=== PATIENT | male | born 1960 | race Caucasian/White ===

== ENCOUNTER 2019-12-31 05:48 | Inpatient (IN) | payer OTHER ==
[~2019-12-31] VITALS: Ht 180.3 cm; Wt 80.0 kg
[2019-12-31] MEDS ORDERED: LACTATED RINGERS 1,000 ML IV SCH (06:49)
[2019-12-31] MEDS ORDERED: CHLORHEXIDINE 15 ML UDC MM STA (06:49)
[2019-12-31] MEDS ORDERED: BENA20TA54 PO (06:51)
[2019-12-31] MEDS ORDERED: LOVA20TA2 PO (06:51)
[2019-12-31] MEDS ORDERED: MIDAZOLAM 1 MG/ML, 2ML ONE (07:03)
[2019-12-31] MEDS ORDERED: FENTANYL PF 100 MCG/2ML ONE ×3 (07:03→09:40)
[2019-12-31] MEDS ORDERED: HYDROmorphone 1 MG/ML, 1ML INJ IVPush PRN (07:30)
[2019-12-31] MEDS ORDERED: MEPERIDINE/PF 25MG/0.5ML IVPush PRN (07:30)
[2019-12-31] MEDS ORDERED: OXYcodone 5 MG/5 ML ORAL.SOL UDC PO PRN (07:30)
[2019-12-31] MEDS ORDERED: PROMETHAZINE 25 MG/ML, 1ML IVPush PRN (07:30)
[2019-12-31] MEDS ORDERED: HYDROcodone/APAP 7.5-325MG/15ML UDC PO PRN (07:30)
[2019-12-31] MEDS ORDERED: EPINEPHRINE 1 MG/ML, 1ML ONE (07:31)
[2019-12-31] MEDS ORDERED: LIDOCAINE/PF 1%, 30ML ONE (07:31)
[2019-12-31] MEDS ORDERED: GLYCOPYRROLATE 0.2MG/1ML, 5ML ONE (07:57)
[2019-12-31] MEDS ORDERED: ONDANSETRON 2MG/ML, 2ML ONE (07:57)
[2019-12-31] MEDS ORDERED: DEXAMETHASONE 4 MG/ML, 1ML ONE (07:57)
[2019-12-31] MEDS ORDERED: NEOSTIGMINE 1 MG/ML, 10ML ONE (07:57)
[2019-12-31] MEDS ORDERED: CEFAZOLIN 1,000 MG ONE (07:57)
[2019-12-31] MEDS ORDERED: SUCCINYLCHOLINE 20 MG/ML, 10ML ONE (07:57)
[2019-12-31] MEDS ORDERED: ROCURONIUM 10MG/ML,5ML ONE (07:57)
[2019-12-31] MEDS ORDERED: PROPOFOL 10 MG/ML, 20ML ONE (07:57)
[2019-12-31] MEDS ORDERED: ACETAMINOPHEN 650 MG/20.3 ML UDC ONE (09:13)
[2019-12-31] MEDS ORDERED: ACETAMINOPHEN 500 MG TABLET PO STA (09:14)
[2019-12-31] MEDS ORDERED: OXYcodone 5 MG/5 ML ORAL.SOL UDC ONE (09:17)
[2019-12-31] MEDS: FENTANYL PF 100 MCG/2ML IV PRN ×3 (09:43→10:04)
[2019-12-31 10:44] LABS: CHLORIDE 106 mmol/L (98-107)
[2019-12-31 10:45] LABS: ALANINE AMINOTRANSFERASE 42 U/L (12-78); ALBUMIN 4.2 g/dL (3.4-5.0); ALKALINE PHOSPHATASE 50 U/L (45-117); ANION GAP 4 mmol/L (5-15); BILIRUBIN,TOTAL 0.6 mg/dL (0.2-1.0); CALCIUM 9.2 mg/dL (8.5-10.1); CREATININE 1.11 mg/dL (0.7-1.3); TOTAL PROTEIN 7.8 g/dL (6.4-8.2)
[2019-12-31] MEDS ORDERED: morphine SULFATE 10 MG/ML, 1ML ONE (11:36)
[2019-12-31] MEDS: morphine SULFATE 10 MG/ML, 1ML IVPush PRN ×3 (11:40→19:37)
[2019-12-31] MEDS ORDERED: ONDANSETRON 2MG/ML, 2ML IVPush PRN (12:00)
[2019-12-31] MEDS ORDERED: PROMETHAZINE 25 MG/ML, 1ML IM PRN (12:00)
[2019-12-31] MEDS ORDERED: ONDANSETRON ODT 4 MG PO PRN (12:00)
[2019-12-31] MEDS: IBUPROFEN 600 MG TABLET PO SCH ×2 (12:00→17:20)
[2019-12-31] MEDS ORDERED: IBUPROFEN 600 MG TABLET ONE (12:08)
[2019-12-31 13:14] VITALS: BP 145/88
[2019-12-31] MEDS: OXYcodone IR 5MG TABLET PO PRN ×3 (13:28→21:09)
[2019-12-31] MEDS: LACTATED RINGERS 1,000 ML IV SCH (13:42)
[2019-12-31] MEDS: ACETAMINOPHEN 325 MG TABLET PO SCH ×2 (15:38→20:47)
[2019-12-31 20:22] VITALS: BP 115/69
[2019-12-31] MEDS: SODIUM CHLORIDE FLUSH 10ML SYR IVF SCH (20:47)
[2020-01-01] MEDS: IBUPROFEN 600 MG TABLET PO SCH ×2 (00:12→05:34)
[2020-01-01] MEDS: OXYcodone IR 5MG TABLET PO PRN ×3 (01:21→09:38)
[2020-01-01 01:25] VITALS: BP 123/79
[2020-01-01] MEDS: morphine SULFATE 10 MG/ML, 1ML IVPush PRN ×2 (01:41→05:26)
[2020-01-01] MEDS: ACETAMINOPHEN 325 MG TABLET PO SCH ×2 (02:37→09:38)
[2020-01-01 06:57] VITALS: BP 103/63
[2020-01-01] MEDS: LACTATED RINGERS 1,000 ML IV SCH (08:00)
[2020-01-01] MEDS: SODIUM CHLORIDE FLUSH 10ML SYR IVF SCH (08:02)
[2020-01-01] MEDS ORDERED: SENNA/DOCUSATE TABLET PO SCH (09:00)
[2020-01-01] MEDS ORDERED: IBUP-1222 PO (09:27)
[2020-01-01] MEDS ORDERED: OXYC5CAP2 PO (09:27)
[2020-01-01] MEDS ORDERED: ACET325T26 PO (09:28)
[2020-01-01] MEDS ORDERED: SENN-190 PO (09:29)
== END 2020-01-01 10:15 | disposition home or self-care (01) | DRG 145 ==
LOC: OUT 05:48 → ORIP 11:47 → 4NW 13:01 → DCLOUNGE 01-01 10:10
PROVIDERS: ADMIT Otolaryngology; ATTEND Otolaryngology
PROC: 0CTPXZZ Resection of Tonsils, External Approach (ICD-10-PCS; 2019-12-31)
PROC: 0KX Muscles, Transfer (ICD-10-PCS; principal; 2019-12-31 07:30)
DX: G47.33 Obstructive sleep apnea (adult) (pediatric) (principal); Z20.828 Contact with and (suspected) exposure to other viral communicable diseases; I10 Essential (primary) hypertension
CPT/HCPCS: 36415; J3490; 80053; 87635; 88304; J0171; J0690; J1100; J2250; J2405; J2704; J2710; J3010; G0378; J0330; J2270; J7120